=== PATIENT | male | born 1965 | race African-American/Black ===

== ENCOUNTER 2017-05-24 20:45 | Outpatient (CLI) ==
[2016-03-18 14:32] VITALS: BMI 23.3
== END 2017-05-24 20:46 | disposition home or self-care (01) ==
LOC: AMBL 20:45
PROVIDERS: ATTEND Emergency Medicine
DX: R55 Syncope and collapse (principal)

== ENCOUNTER 2017-11-09 22:14 | Outpatient (CLI) ==
[2016-03-18 14:32] VITALS: BMI 23.3
== END 2017-11-09 22:15 | disposition home or self-care (01) ==
LOC: AMBL 22:14
PROVIDERS: ATTEND Family Medicine
DX: R55 Syncope and collapse (principal)